=== PATIENT | female | born 1985 | race Caucasian/White ===

== ENCOUNTER 2018-08-29 06:00 | Day surgery (SDC) | payer OTHER ==
[~2018-08-29] VITALS: Ht 154.9 cm; Wt 50.5 kg
[~2018-08-29 06:00] MED LIST: RINGERS SOLUTION,LACTATED 500 ML IV ONE
[2018-08-29] MEDS ORDERED: MIDAZOLAM HCL 2 MG/2 ML VIAL IVP ONE (06:01)
[2018-08-29] MEDS ORDERED: ATROPINE SULFATE 0.4 MG/ML VIAL IM ONE (06:01)
[2018-08-29] MEDS ORDERED: FentaNYL CITRATE-PF 100 MCG/2 ML VIAL IVP ONE (06:01)
[2018-08-29] MEDS ORDERED: RINGERS SOLUTION,LACTATED 500 ML IV ONE (06:37)
[2018-08-29] MEDS ORDERED: TETRACAINE HCL/PF 0.5% 4 ML OPHTHALMIC SOLUTION ONE (06:37)
[2018-08-29] MEDS ORDERED: OFLOXACIN 0.3% 5 ML OPHTHALMIC SOLUTION ONE (06:38)
[2018-08-29] MEDS ORDERED: ACETAMINOPHEN 325 MG TABLET PO PRN (08:45)
[2018-08-29] MEDS ORDERED: OFLOXACIN 0.3% 5 ML OPHTHALMIC SOLUTION OD ONE (08:45)
[2018-08-29] MEDS ORDERED: MitoMYcin 0.2 MG/VIAL KIT FOR OPHTHALMIC USE OD ONE (08:45)
[2018-08-29] MEDS ORDERED: TETRACAINE HCL/PF 0.5% 4 ML OPHTHALMIC SOLUTION OD ONE (08:45)
== END 2018-08-29 08:50 | disposition home or self-care (01) ==
LOC: SURGERY 06:00
PROVIDERS: ATTEND Ophthalmology
DX: H11.001 Unspecified pterygium of right eye (principal); Z79.899 Other long term (current) drug therapy; Z98.890 Other specified postprocedural states
CPT/HCPCS: 36415; 65426; 84702; 88304; J0461; J2250; J3010; J7120